=== PATIENT | female | born 2000 | race African-American/Black ===

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

== ENCOUNTER 2022-12-03 12:46 | Outpatient (REF) | payer MEDICAID, SELFPAY ==
[2022-12-04 03:13] LABS: CT PCR NOT DETECTED (Not Detect.); NG PCR NOT DETECTED (Not Detect.)
[2022-12-04 09:39] LABS: BV Int Neg Control Negative (Negative); BV Int Pos Control Positive (Positive)
== END 2022-12-03 12:47 | disposition home or self-care (01) ==
LOC: HO.LNP 12:46
PROVIDERS: Visit Provider Advanced Practice Midwife
DX: Z30.41 Encounter for surveillance of contraceptive pills (principal); R63.6 Underweight
CPT/HCPCS: 0353U; 87480; 87510; 87660; 99395

== ENCOUNTER 2022-12-03 12:46 | Outpatient (AMB) | payer MEDICAID, SELFPAY ==
--- NOTE | 2022-12-03 12:58 | A.OFFVIS_ITS ---
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 She was too anxious last year and did not have a pelvic exam and she still anxious this year and is unsure if she will have it. She is occasionally sexually active with her partner but says she has not had sex much in the last couple of months and not since her last period on November 16. She shared towards the end of the visit that she found out that her boyfriend had been with someone else so that is why she has not been with him she would like STI testing. She had not been taking the control pills though she does not want to have a baby right now she wants to finish her schooling and Education though all her friends her age or having babies. 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 She gets concerned about her weight because she has been told that she is underweight. She thinks she eats pretty good but she does not have much appetite in the morning and does not eat until later she did just have a subway sandwich him and she has with lettuce and miller at [employer] right before coming here. she said her mom and her previous doctor told her she was okay because of her petite size that she She did not weighed that much she sometimes gets concerned though in mentioned it. In reviewing her other intake she had a yogurt and banana this morning and last night she had rice and beans with some me and green beans and salad and corn. [facility] Social History Alcohol intake: never Patient Tobacco Use Status: Never used Tobacco Sexual orientation: Straight/Heterosexual Gender identity: Female Female Reproductive History Menstrual Age of Menarche: 15 Duration of menses: 6-7 days Date of last menstrual period: 11/16/22 control method: pills Total pregnancies: 0 Physical Exam Vital Signs: Last Vital Signs BP 114/62 12/03/22 13:02 BMI result Body Mass Index 18.7 Const General: healthy appearing, comfortable, no acute distress, well developed and alert Nutritional Appearance: average body habitus and thin Orientation/consciousness: patient oriented x3 Limitations: no limitations HEENT Head: Yes normocephalic Neck Neck: Yes normal visual inspection Chest Chest palpation & inspection: normal inspection of the chest Breast/axilla inspection: normal inspection of the breasts and normal inspection of the axillae Breast/axilla palpation: normal palpation of the breasts and normal palpation of the axillae Resp Effort & Inspection: normal respiratory effort GI Inspection: Yes normal to inspection, No Abdominal wall edema and No distended Palpation (GI): Soft to palpation and nontender General: Yes bladder normal to palpation External Female Exam: normal external appearance and normal appearance of the urethra Speculum Exam - Vagina: normal appearance of the vagina, normal palpation and normal vaginal discharge Speculum Exam - Cervix: normal appearance of the cervix, normal palpation and nontender Bimanual exam- vagina & uterus: normal bimanual exam, normal palpation, uterine size normal, bladder normal to palpation, consistency normal, normal palpation, uterine mobility normal, uterine shape normal, No Cervical tenderness present, non-tender and no cervical motion tenderness Bimanual Exam- Adnexa, other: normal adnexae, no masses, normal and No adnexal tenderness Neuro General: patient oriented x3 Assessment & Plan Assessment & Plan (1) Well woman exam with routine gynecological exam: Comment: 1st pelvic 12/03/2022; single digit exam. Code(s): Z01.419 - Encounter for gynecological examination (general) (routine) without abnormal findings (2) Encounter for surveillance of contraceptive pills: Code(s): Z30.41 - Encounter for surveillance of contraceptive pills (3) Screen for sexually transmitted diseases: Code(s): Z11.3 - Encounter for screening for infections with a predominantly sexual mode of transmission (4) Underweight: Comment: only 2 lb less than normal range for height , reviewed BMI chart and diet andres nds balanced. Code(s): R63.6 - Underweight Plan -----Discussed in this visit the following: healthy balanced diet, regular and consistent exercise, getting recommended health screens, doing the best she can for her particular health concerns, kegel exercises, pap smear screening and followup recommendations, mammography screening and SBE, normal changes in cycles in her life stage--- .I reviewed with her the usual components of a pelvic exam.? I explained the tool called the speculum and how it is used to help us see her cervix and check for infections with Q-tips, that we then send to the lab in tubes, and also how we do a Pap smear and what that is checking for.? Discussed the reasons for doing these tests.? Also discussed how infections are transmitted from 1 person to another, but also how some infections can just be an imbalance in a bacteria or fungus in the vagina as and that the exam is a way to tell what is going on.? Also discussed reasons why somebody might not need to have an exam at this particular time.? Also discussed what we check for when we are doing a bimanual exam, (checking ovaries and cervix and uterus, and muscles).? I showed her the speculum and offered a mirror so that she can watch during the exam as well. Discussed relaxing during the exam, and that while it may be a little bit uncomfortable, as it is invasive, but that it should not hurt, and if she feels like it is hurting, then that that is a reason to stop if she does not feel comfortable.? Discussed that while doing these exams are necessary to help figure things out, and also to do some screening tests at certain important times, they are not always necessary and do not always have to be done just because they are scheduled.? First Pap smear would be at age 21, and testing for sexually transmitted infection and should occur any time somebody is at risk for having been exposed.? Any time someone has itching, burning, a bad smell, or some other concern about their vaginal area, is a time to be checked as well. In the end, having a vaginal or speculum exam is a method of checking the most private and sensitive part of a Women's body and it should always be done with the woman herself in full control. because of her partner's cheating I did recommend that she have a pelvic exam today it was done gently she had normal discharge I did not have a great view of her cervix so I could not show her her cervix today. The bimanual exam was done with a single digit but no tenderness or pathology was palpable and her cervix felt normal nulliparous and her uterus was midposition and nontender. She had good tone though it was difficult to describe how to do a Kegel. She decided that she does want to stay on control pills and will start taking them again. I sent her prescription this time to the [employer] and shop where she works as she does not have a car and it is hard to get to the [facility]. Encouraged safer sex whenever there is a concern and it always trust her got and listen to her body. She describes that sometimes she has tense when she is having sex and given that there has just been says loss of trust in the relationship that is understandable and I encouraged listening to herself to guide and just because sex might of been planned does not mean she needs to follow through if she is not feeling that it is safe and respectful. Orders: Orders Bacterial Vaginosis Panel Today R63.6 - Underweight, Z01.419 - Encounter for gynecological examination (general) (routine) without abnormal findings, Z11.3 - Encounter for screening for infections with a predominantly sexual mode of transmission, Z30.41 - Encounter for surveillance of contraceptive pills CT NG by PCR Today R63.6 - Underweight, Z01.419 - Encounter for gynecological examination (general) (routine) without abnormal findings, Z11.3 - Encounter for screening for infections with a predominantly sexual mode of transmission, Z30.41 - Encounter for surveillance of contraceptive pills Hepatitis B Surface Antigen Today R63.6 - Underweight, Z01.419 - Encounter for gynecological examination (general) (routine) without abnormal findings, Z11.3 - Encounter for screening for infections with a predominantly sexual mode of transmission, Z30.41 - Encounter for surveillance of contraceptive pills Hepatitis C Antibody Today R63.6 - Underweight, Z01.419 - Encounter for gynecological examination (general) (routine) without abnormal findings, Z11.3 - Encounter for screening for infections with a predominantly sexual mode of transmission, Z30.41 - Encounter for surveillance of contraceptive pills HIV Ab/Ag Today R63.6 - Underweight, Z01.419 - Encounter for gynecological examination (general) (routine) without abnormal findings, Z11.3 - Encounter for screening for infections with a predominantly sexual mode of transmission, Z30.41 - Encounter for surveillance of contraceptive pills Syphilis Screen Today R63.6 - Underweight, Z01.419 - Encounter for gynecological examination (general) (routine) without abnormal findings, Z11.3 - Encounter for screening for infections with a predominantly sexual mode of transmission, Z30.41 - Encounter for surveillance of contraceptive pills Medications: Refilled levonorgestrel-ethinyl estrad 0.1-20 mg-mcg (Lutera (28)) 1 tab PO DAILY 84 tabs 4RF Coding Level of Care Code Est Pt Prev Care 18-39y(96342) Diagnoses Well woman exam with routine gynecological exam Z01.419 Encounter for surveillance of contraceptive pills Z30.41 Screen for sexually transmitted diseases Z11.3 Underweight R63.6
[2022-12-03 13:02] VITALS: BP 114/62; BMI 18.7
== END 2022-12-03 13:57 | disposition home or self-care (01) ==
LOC: HO.HWS 12:46
PROVIDERS: Visit Provider Advanced Practice Midwife
DX: Z01.419 Encounter for gynecological examination (general) (routine) without abnormal findings (principal); Z11.3 Encounter for screening for infections with a predominantly sexual mode of transmission; R63.6 Underweight
CPT/HCPCS: 99395

== ENCOUNTER 2024-04-19 13:39 | Outpatient (REF) | payer MEDICAID, SELFPAY ==
[2024-04-20 06:05] LABS: CT PCR NOT DETECTED (Not Detect.); NG PCR NOT DETECTED (Not Detect.)
[2024-04-20 11:13] LABS: Bacterial Vaginosis PCR NEGATIVE (Negative); Candida Group PCR NOT DETECTED (Not Detect); Candida glab krusei PCR NOT DETECTED (Not Detect); Trichomonas vaginalis PCR NOT DETECTED (Not Detect)
== END 2024-04-19 13:40 | disposition home or self-care (01) ==
LOC: HO.LAB 13:39
PROVIDERS: Visit Provider Advanced Practice Midwife
DX: Z01.419 Encounter for gynecological examination (general) (routine) without abnormal findings (principal); N89.8 Other specified noninflammatory disorders of vagina; Z20.2 Contact with and (suspected) exposure to infections with a predominantly sexual mode of transmission
CPT/HCPCS: 0352U; 87491; 87591; 88175; 99395; 99459

== ENCOUNTER 2024-04-19 13:39 | Outpatient (AMB) | payer MEDICAID, SELFPAY ==
[2024-04-19 13:44] VITALS: BP 110/60; BMI 19.0
--- NOTE | 2024-04-19 13:44 | A.OFFVIS_ITS ---
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 She was tense during the exam year but she will try again. She was on control pills but she kept forgetting so she ended up stopping she broke up with her boyfriend for years in January she is not planning with anybody but in case she ever did she thinks she would like go back on pills again she would use. She would like get checked for STDs just to be sure. her periods are regular and last for 5 days and the 1st 2 are crampy. she takes either time Motrin She graduated in got a diploma. 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 [facility] Social History (Reviewed 04/19/24 @ 13:46 by Siddharth Beck [facility]) Alcohol intake: never Patient Tobacco Use Status: Never used Tobacco Sexual orientation: Straight/Heterosexual Gender identity: Female Female Reproductive History Menstrual Age of Menarche: 15 Duration of menses: 3-5 days Date of last menstrual period: 03/25/24 control method: none History of abnormal pap smear: No (no previous pap) Physical Exam Vital Signs: Last Vital Signs BP 110/60 04/19/24 13:44 BMI result Body Mass Index 19.0 Const General: healthy appearing, comfortable, no acute distress, well developed and alert Nutritional Appearance: average body habitus Orientation/consciousness: patient oriented x3 Limitations: no limitations HEENT Head: Yes normocephalic Neck Neck: Yes normal visual inspection Chest Chest palpation & inspection: normal inspection of the chest Breast/axilla inspection: normal inspection of the breasts and normal inspection of the axillae Breast/axilla palpation: normal palpation of the breasts and normal palpation of the axillae Resp Effort & Inspection: normal respiratory effort GI Inspection: Yes normal to inspection, No Abdominal wall edema and No distended Palpation (GI): Soft to palpation and nontender Other: Normal external exam vagina pink and moist patient was tense but she was able to allow for the thinnest Vilma speculum to be used patient is of slight stature and we BMI 19 her pink nulliparous cervix was slightly difficult to see with a narrow speculum but it appeared healthy with normal scant clear mucus uterus small anteverted mobile nontender bladder was full adnexa nontender not enlarged good tone Kegel. General: Yes bladder normal to palpation External Female Exam: normal external appearance and normal appearance of the urethra Speculum Exam - Vagina: normal appearance of the vagina, normal palpation and normal vaginal discharge Speculum Exam - Cervix: normal appearance of the cervix, normal palpation and nontender Bimanual exam- vagina & uterus: normal bimanual exam, normal palpation, uterine size normal, bladder normal to palpation, consistency normal, normal palpation, uterine mobility normal, uterine shape normal, No Cervical tenderness present, non-tender and no cervical motion tenderness Bimanual Exam- Adnexa, other: normal adnexae, no masses, normal and No adnexal tenderness Neuro General: patient oriented x3 Results Reviewed Results Reviewed: jules: Alena Cotter Age/Sex: 22/F : 2000 Unit#: [id number] Attend Dr: Sakina Vance CNM Re12/03/22 Status: DEP REF Location: [facility] Disch: SPEC : [id number] MANAN: 12/03/22 STATUS: COMP REQ : [id number] RECD: 12/03/[address]: Sakina Vance CNM COMP: 12/04/22 ENTERED: 12/03/[address]: Physician,Unknown ORDERED: CT NG by PCR QUERIES: CT NG Source: Vaginal Test Result Flag Reference CT PCR NOT DETECTED Not Detect. A not detected test result does not exclude the possib ility of infection because test results can be affected by improper specimen collection, concurrent antibiotic therapy, or the number of organisms in the specimen which may be below the sensitivity of the test. As with many diagnostic tests, results from the Xpert CT/NG assay should be interpreted in conjunction with other laboratory and clinical data available to the clinician. Xpert CT/NG performance has not been evaluated in patients less than 14 years of age. The assay should not be used for the evaluation of suspected sexual abuse or for other medico-legal indications. Additional testing is recommended in any circumstance when false positive or false negative results could lead to adverse medical, social or psychological consequences. NG PCR NOT DETECTED Not Detect. A not detected test result does not exclude the possibility of infection because test results can be affected by improper specimen collection, concurrent antibiotic therapy, or the number of organisms in the specimen which may be below the sensitivity of the test. As with many diagnostic tests, results from the Xpert CT/NG assay should be interpreted in conjunction with other laboratory and clinical data available to the clinician. Xpert CT/NG performance has not been evaluated in patients less than 14 years of age. The assay should not be used for the evaluation of suspected sexual abuse or for other medico-legal indications. Additional testing is recommended in any circumstance when false positive or false negative results could lead to adverse medical, social or psychological consequences. jules: Alena Cotter Age/Sex: 22/F : 2000 Unit#: [id number] Attend Dr: Sakina Vance CNM Re12/03/22 Status: DEP REF Location: [facility] Disch: SPEC : [id number] MANAN: 12/03/22 STATUS: COMP REQ : [id number] RECD: 12/03/[address] [facility] [address]: Sakina Vance CNM COMP: 12/04/2239 ENTERED: 12/03/[address]: Physician,Unknown ORDERED: BV Panel Test Result Flag Reference Trichomonas DNA Negative Negative Gardnerella DNA Negative Negative Franca DNA Negative Negative Assessment & Plan Assessment & Plan (1) Encounter for surveillance of contraceptive pills: Code(s): Z30.41 - Encounter for surveillance of contraceptive pills Category: Medical (2) Well woman exam with routine gynecological exam: Comment: 1st pelvic 12/03/2022; single digit exam. Code(s): Z01.419 - Encounter for gynecological examination (general) (routine) without abnormal findings Category: Medical (3) Screen for sexually transmitted diseases: Code(s): Z11.3 - Encounter for screening for infections with a predominantly sexual mode of transmission Category: Medical (4) Underweight: Comment: only 2 lb less than normal range for height , reviewed BMI chart and diet sounds balanced. Code(s): R63.6 - Underweight Category: Medical Plan -----Discussed in this visit the following: healthy balanced diet, regular and consistent exercise, getting recommended health screens, doing the best she can for her particular health concerns, kegel exercises, pap smear screening and followup recommendations, mammography screening and SBE, normal changes in cycles in her life stage--- .----I reviewed available options for Control Methods and their associated side effect profiles. In particular, we discussed the method most of interest to her. Reviewed use condoms because anybody she would start with would with by definition be new to her and potentially at risk to share infections. -I reviewed how to start pills again whenever she wishes. Rig but she shouldht now she is not with anyone and does not need to be on them but I reviewed that best time to start them be the beginning of her. And she should be at beginning her period, . And it should be in the 1st 2 heavy days . I recomm end that she them up have them ready so she has them available to her and if she had any questions if it had been awhile she could always call us and could have a tele visit to review exactly how to start pills and any other questions I did review risks with all methods of control including hormonal methods and reviewed that she is at low risk. Orders: Orders Hepatitis B Surface Antigen Today R63.6 - Underweight, Z01.419 - Encounter for gynecological examination (general) (routine) without abnormal findings, Z11.3 - Encounter for screening for infections with a predominantly sexual mode of transmission, Z30.41 - Encounter for surveillance of contraceptive pills Hepatitis C Antibody Today R63.6 - Underweight, Z01.419 - Encounter for gynecological examination (general) (routine) without abnormal findings, Z11.3 - Encounter for screening for infections with a predominantly sexual mode of transmission, Z30.41 - Encounter for surveillance of contraceptive pills HIV Ab/Ag Today R63.6 - Underweight, Z01.419 - Encounter for gynecological examination (general) (routine) without abnormal findings, Z11.3 - Encounter for screening for infections with a predominantly sexual mode of transmission, Z30.41 - Encounter for surveillance of contraceptive pills Syphilis Screen Today R63.6 - Underweight, Z01.419 - Encounter for gynecological examination (general) (routine) without abnormal findings, Z11.3 - Encounter for screening for infections with a predominantly sexual mode of transmission, Z30.41 - Encounter for surveillance of contraceptive pills Medications: Refilled levonorgestrel-ethinyl estrad 0.1-20 mg-mcg (Lutera (28)) 1 tab PO DAILY 84 tabs 4RF Coding Level of Care Code Est Pt Prev Care 18-39y(16860) Diagnoses Encounter for surveillance of contraceptive pills Z30.41 Well woman exam with routine gynecological exam Z01.419 Screen for sexually transmitted diseases Z11.3 Underweight R63.6
== END 2024-04-19 14:27 | disposition home or self-care (01) ==
PROVIDERS: Visit Provider Advanced Practice Midwife
DX: Z01.419 Encounter for gynecological examination (general) (routine) without abnormal findings (principal); R63.6 Underweight; Z30.41 Encounter for surveillance of contraceptive pills
CPT/HCPCS: 99395; 99459

== ENCOUNTER 2024-08-04 13:13 | Outpatient (AMB) | payer MEDICAID, SELFPAY ==
--- NOTE | 2024-08-04 13:48 | MHC.OFFVIS ---
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 No previous Pap smear PFSH Social History Alcohol intake: never Patient Tobacco Use Status: Never used Tobacco Sexual orientation: Straight/Heterosexual Gender identity: Female Female Reproductive History Menstrual Age of Menarche: 15 Assessment & Plan Assessment & Plan (1) LGSIL on Pap smear of cervix: Comment: HPV high-risk positive HPV 16/18 negative Code(s): R87.612 - Low grade squamous intraepithelial lesion on cytologic smear of cervix (LGSIL) Category: Medical Plan: Discussed with the patient the result of her abnormal pap, its significance, risk of progression, persistence, and regression. the false positive/negative rate of a Pap smear as a screening test in detecting cervical cancer and ASCCP guidelines for management of woman ages 21-24 years of age with LSIL HPV positive, recommendation is to repeat cytology in 12 months. Instructions given the patient to schedule a 12 months Pap smear appointment. All questions answered, the patient verbalized understand Coding Level of Care Code Est Pt Level 3 (22456) Diagnoses LGSIL on Pap smear of cervix R87.612
--- OUTSIDE RECORDS SUMMARY | 2024-08-04 15:07 | XMS_ITS | Encounter Summary ---
Author Organization [facility] Address [address] [place] [phone] Phone Care Team Providers Care Desktop Operator Name Role Phone Nancy Soto MD Primary Care Provider Unavailabl e Encounter Details Date Type Department Care Team (Late st Contact Info) Description 12/17/2016 Conversion Encounter [facility] - [address] [address] Social History Tobacco Use Types Packs/Day Years Used Date Smoking Tobacco: Never Assessed Comments Unknown Sex and Gender Information Value Date Recorded Sex Assigned at Not on file Legal Sex Female 4:15 PM EDT Gender Identity Not on file Sexual Orientation Not on file documented as of this encounter Plan of Treatment Not on file documented as of this encounter Visit Diagnoses Not on filedocumented in this encounter Care Teams Desktop Operator Relationship Specialty Start Date End Date Nancy Soto MD PCP - General 12/11/16 documented as of this encounter
--- OUTSIDE RECORDS SUMMARY | 2024-08-04 15:07 | XMS_ITS | Clinical Summary ---
Author Organization [facility] Address [address] [place] [id number] Phone Care Team Providers Care Research Chef Name Role Phone Nancy Soto MD Primary Care Provider Unavailabl e Immunizations Immunization Administration Dates Next Due DTaP 5 04/17/2004,2002,2002 ,2002 Hep B, ped/adol 2002,2002,2002 Hib (PRP-T) 04/17/2004,2002,2002 ,2002 IPV 2002,2002,2002 Influenza, injectable, trivalent 05/01/2005,12/0 12/2002,03/09/2003 MMR 03/09/2003 Pneumococcal Conjugate 04/17/2004,2002,,2002 Varicella 03/09/2003 Social History Tobacco Use Types Packs/Day Years Used Date Smoking Tobacco: Never Assessed Comments Unknown Sex and Gender Information Value Date Recorded Sex Assigned at Not on file Legal Sex Female 4:15 PM EDT Gender Identity Not on file Sexual Orientation Not on file Plan of Treatment Health Maintenance Due Date Last Done Comments IPV Vaccines (4 of 4 - 4-dose series) 2006 2002, 2002, 2002 Varicella Vaccines (2 of 2 - 2-dose childhood series) 2006 03/09/2003 DTaP,Tdap,and Td Vaccines (5 - Tdap) 2013 04/17/2004, 2002, 2002, Additional history exists HPV Vaccines (1 - 3-dose series) 2017 Men B Vaccine (1 of 2 - Standard) 2018 Influenza Vaccines (#1) 2023 05/01/20, 04/09/2003, 03/09/2003 COVID-19 Vaccine ( season) 2024 Hepatitis B Vaccines Completed 2002, 2002, 2002 MMR Vaccines Completed 03/09/2003 HIB Vaccines Completed 04/17/2004, 06/2002, 2002, Additional history exists Pneumococcal Vaccine Completed 04/17/2004, 2002, 2002, Additional history exists Hepatitis A Vaccines Aged Out No long er eligible based on patient's age to complete this topic Meningococcal Vaccine Aged Out No dianna ulices eligible based on patient's age to complete this topic Care Teams Research Chef Relationship Specialty Start Date End Date Nancy Soto MD PCP - General 12/11/16
--- OUTSIDE RECORDS SUMMARY | 2024-08-04 15:07 | XMS_ITS | Clinical Summary ---
Author Organization [employer] Address [address] [facility] [address] [place] [address] Care Team Providers Care Chief Ultrasound Technologist Name Role Phone Lexy Lopez NP Primary Care Provider [phone] Allergies No known active allergies Medications levonorgestrel-e thinyl estradiol (Falmina) 0.1-20 MG-MCG tablet Take 1 tablet by mouth at bed time. Active naproxen (Naprosyn) 500 MG tabletIndication s:Nasal congestion,Influ sandra A 1 tablet by oral route 2 times per day prn pain 20 tablet 07/12/2023 Active Active Problems Problem Noted Date Diagnosed Date URI (upper respiratory infection) 07/01/2023 Assessment & Plan (07/01/2023 10:24 AM EST): Drink plenty of fluids and rest Anxiety 08/31/2013 Myopia 07/12/2012 Encounters Date Type Department Care Team Description 07/14/2024 Population Health Risk Score [facility] ([facility]) Department [address] [id number] Provider, Population Health Generic from Last 3 Months Social History Tobacco Use Types Packs/Day Years Used Date Smoking Tobacco: Never Smokeless Tobacco: Never Tobacco Cessation:Counseling Given: Not Answered Alcohol Use Standard Drinks/Week Comments Not Currently 0 (1 standard drink = 0.6 oz pur e alcohol) Comments Unknown Sex and Gender Information Value Date Recorded Sex Assigned at Female 03/02/2022 10:19 AM EDT Legal Sex Female 10:19 AM EDT Gender Identity Female 03/02/2022 10:19 AM EDT Sexual Orientation Choose not to disclose 2021 10:19 AM EDT Last Filed Vital Signs Vital Sign Reading Time Taken Comments Blood Pressure 113/73 07/12/2023 3:07 PM EDT Pulse 76 07/12/2023 3:07 PM EDT Temperature 36.5 ??C (97.7 ??F) 07/12/2023 3:07 PM ED T Respiratory Rate 16 07/12/2023 3:07 PM EDT Oxygen Saturation 99% 07/12/2023 3:07 PM EDT Inhaled Oxygen Concentration - - Weight 43.8 kg (96 lb 9.6 oz) 07/12/2023 3:07 PM EDT Height 147.3 cm (4' 10 ) 09/07/2022 2:44 PM EDT Body Mass Index 20.19 09/07/2022 2:44 PM EDT Plan of Treatment Upcoming Encounters Date Type Department Care Team (Late st Contact Info) Description 08/15/2024 3:00 PM EDT Office Visit [facility] [address] [place] [address] Amari, Esthela, OD [address] [place] [address] Health Maintenance Due Date Last Done Comments Depression Screening 2002 HIV Screening 2002 SDOH Screening 2002 Alcohol/Substance Use Screening 2014 Family Planning (PISQ) 2017 Hepatitis C Screening 02/29/2020 Chlamydia and Gonorrhea Screening 07/12/2021 07/12/2020 Pap Smear 2023 DTaP/Tdap/Td Vaccines (7 - Td or Tdap) 12/12/2023 12/11/2013, 09/06/2006, 04/17/2004, Additional history exists COVID-19 Vaccine ( season) 2024 Influenza Vaccine (#1) 2024 , 04/02/2017, 03/24/2013, Additional history exists Tobacco Screening 07/11/2024 07/12/2023 Zoster Vaccines (1 of 2) 02/29/2052 RSV Patients and Patients Aged 60 years or older (1 - 1-dose 75+ series) 2077 HIB Vaccines Completed 04/17/2004, 06/2002, 2002, Additional history exists Pneumococcal Vaccine: Pediatrics (0 to 5 Years) and At-Risk Patients (6 to 49) Years) Aged Out 04/17/2004, 2002, 2002, Additional history exists No longer eligible based on patient's age to complete this topic IPV Vaccines Completed 09/06/2006, 12/01, 2002, Additional history exists Hepatitis B Vaccines Completed 12/15/2006, 2002, 2002, Additional history exists HPV Vaccines Completed 04/02/2017, 09/29/2016 Hepatitis A Vaccines Completed 04/02/2017, 09/30/19 17 Meningococcal Vaccine Completed 08/08/2018, 014 RSV under 20 months Aged Out No longe r eligible based on patient's age to complete this topic Rotavirus Vaccines Aged Out No longer eligible based on patient's age to complete this topic Procedures Procedure Name Priority Date/Time Associated Diagnosis Comments ZZZ HISTORICAL CHLAMYDIA/N. GONORRHOEAE RNA, TMA, UROGENITAL Routine 07/12/2020 2:42 PM EST from Last 3 Months or Most Recently Relevant to Health Maintenance Results * CHLAMYDIA/N. GONORRHOEAE RNA, TMA, UROGENITAL (07/12/2020 2:42 PM EST) Chlamydia trachomatis RNA, TMA, Urogenital NOT DETECTED NOT DETECTED [facility] COMMENT SEE COMMENT [facility] Comment: The analytical performance characteristics of this assay, when used to test SurePath(TM) specimens have been determined by [employer]. The modifications have not been cleared or approved by the FDA. This assay has been validated pursuant to the CLIA regulations and is used for clinical purposes. ?? For additional information, please refer to https://education.DIY/faq/NKZ754 (This link is being provided for information/ educational purposes only.) ?? Neisseria gonorrhoeae RNA, TMA, Urogenital NOT DETECTED NOT DETECTED [facility] 07/12/2020 2:42 PM EST Adriana Persaud DO HISTORICAL/NON ORDERABLE LABS Final Result [facility] [address] from Last 3 Months or Most Recently Relevant to Health Maintenance Insurance [facility] Care Teams Chief Ultrasound Technologist Relationship Specialty Start Date End Date Lexy Lopez NP [address] [place] [address] PCP - General Family Medicine 11/03/23
== END 2024-08-04 14:05 | disposition home or self-care (01) ==
LOC: HO.HWS 13:13
PROVIDERS: Visit Provider Obstetrics & Gynecology
DX: R87.612 Low grade squamous intraepithelial lesion on cytologic smear of cervix (LGSIL) (principal)
CPT/HCPCS: 99213

== ENCOUNTER → 2024-08-04 13:13 | Outpatient (BNVA) | payer MEDICAID, SELFPAY | PROVIDERS: Visit Provider Obstetrics & Gynecology | DX: R87.612 Low grade squamous intraepithelial lesion on cytologic smear of cervix (LGSIL) (principal) | CPT/HCPCS: 99212 ==